=== PATIENT | female | born 1980 | race Caucasian/White ===

== ENCOUNTER 2019-07-18 05:52 | Day surgery (SDC) | payer BC, SELFPAY ==
[2019-07-17 10:35] VITALS: BMI 36.8
[2019-07-17 11:11] LABS: OR HCG Qualitative Urine Negative (Negative)
--- NOTE | 2019-07-17 11:26 | P.ANES_ITS ---
Pre-Anesthetic Assessment Pre-Anesthetic Assessment: Height/Weight: Height 1.63 m Weight 97.522 kg Proposed Procedure: Operation Date: 07/18/19 07:05 Proposed Procedures p Hysteroscopy w/ Ablation w/ Novasure(Not Applicable) - Galdino Mancuso MD Social: Social History: Alcohol and Tobacco Exam: Pre-Anes Outpt Exam: alert, oriented x 3, clear to auscultation bilaterally and regular rate & rhythm Airway: Submandibular: WNL Cervical ROM: WNL MP: 3 Dentition: Full History/ROS: No significant history except as noted Pulmonary: Pulmonary: None reported CV/HEM: CV/HEM: None reported : : None reported Hepatic: Hepatic: None reported GI: GI: GERD (not well controlled) Metabolic: Metabolic: None reported Musc/skel: Musc/skel: None reported Neuropsych: Neuropsych: None reported Anesthetic Plan: ASA status: II Anesthesia: Anesthesia Evaluation and General Risk of > 500 ml blood loss (7ml/kg in children): No PFSH Anesthesia PFSH: Medical History Depression (Acute) Gastroesophageal reflux (Acute) Migraine headache (Acute) On Topiramate for suppression. Surgical History S/P tubal ligation (Acute 06/20/08) Laparoscopic bilateral Falope ring sterilization. Performed by Dr. Houser at [facility] and [place], [place]. Status post cholecystectomy (Acute ~2010) Performed at [facility] in [place], [place] Family History Father Diabetes Sister No problems noted. Family/Other No problems noted. Social History Smoking and tobacco status: current every day smoker cigarettes Packs smoked per day: 1 [ Other cigarette details: Started age 18. Has decreased periodically, but never quit. ] Alcohol intake: current Alcohol intake frequency: holidays/special occasions only Substance/Drug Use: never Female Reproductive History: Spontaneous abortions: No Data Anesthesia Other Labs: Laboratory Results - last 48 hr 07/17/19 10:41 Urine HCG, Qual Negative Cardiac Studies: No Data to Display
[2019-07-17 11:30] LABS: Basophils # 0.1 10^3/uL (0.0-0.1); Basophils % 0.8 %; Eosinophils # 0.3 10^3/uL (0.0-0.8); Eosinophils % 4.2 %; Hematocrit 32.7 % (37.0-47.0); Lymphocytes # 1.7 10^3/uL (0.8-4.8); Lymphocytes % 26.7 %; Mean Corpuscular HGB Conc 30.6 g/dL (30.0-36.0); Mean Corpuscular Hemoglobin 24.4 pg (28.0-34.0); Mean Corpuscular Volume 79.8 fL (81-99); Mean Platelet Volume 11.4 fL (7.4-10.4); Monocytes # 0.6 10^3/uL (0.2-0.9); Monocytes % 9.3 %; Neutrophils # 3.7 10^3/uL (1.8-7.7); Neutrophils % 58.7 %; Nucleated Red Blood Cells % 0 %; Platelet Count 265 10^3/cmm (130-400); Red Cell Distribution Width 17.8 % (12.1-15.1); White Blood Count 6.3 10^3/uL (4.0-10.0)
[2019-07-18] VITALS (8 sets, daily range): BP systolic 103–137; BP diastolic 69–88; PULSE 84–120; RESP 16–20; TEMP 36.5–36.6; O2SAT 94–100
[2019-07-18] MEDS: sodium chloride 0.9% 1,000 ML 30 ML IV (06:15)
[2019-07-18] MEDS: ketorolac 30 mg/mL INJ IVP (06:15)
--- NOTE | 2019-07-18 07:03 | P.HPUD_ITS ---
H&P update H&P Update: DATE OF SURGERY/PROCEDURE: 07/18/19 DATE H&P PERFORMED: H&P UPDATE INFORMATION: H&P completed within last 30 days, No changes to prior documentation and H[place] is [place] [facility] [place] indicated PREOP DIAGNOSIS: Menorrhagia with irregular cycle, Iron deficiency anemia PLANNED PROCEDURE: Operation Date: 07/18/19 07:05 Proposed Procedures p Hysteroscopy w/ Ablation w/ Novasure(Not Applicable) - Galdino Mancuso MD Full H&P Medications/Allergies: Current Medications: Current Medications Generic Name Dose Route Start Last Admin Trade Name Freq PRN Reason Stop Dose Admin Sodium Chloride 1,000 mls @ 30 ml s/hr 07/18/19 05:45 07/18/19 06:15 Sodium Chloride 0.9% IV 07/19/19 05:44 30 mls/hr .Q24H RAYSA Administration Perinent History: Medical/Surgical History: Medical History (Updated 07/17/19 @ 01:04 by Galdino Mancuso MD) Depression (Acute) Gastroesophageal reflux (Acute) Migraine headache (Acute) On Topiramate for suppression. Family History: Family History (Updated 07/12/19 @ 16:25 by Idania Iyer LPN) Father Diabetes Sister No problems noted. Family/Other No problems noted. Social History: Social History Smoking and tobacco status: current every day smoker cigarettes Packs smoked per day: 1 [ Other cigarette details: Started age 18. Has decreased periodically, but never quit. ] Alcohol intake: current Alcohol intake frequency: holidays/special occasions only
--- NOTE | 2019-07-18 07:49 | P.OP_ITS ---
Operative Report Date of procedure: 07/18/19 Pre-op Diagnosis: Menorrhagia with irregular cycle Pre-op Diagnosis: Iron deficiency anemia due to chronic blood loss Post-op diagnosis: same Procedure Done: Hysteroscopy, Dilation and curettage, endometrial ablation with NovaSure Specimens removed/disposition: Endometrial curettings Surgeon: Galdino Mancuso Anesthesia: General Estimated blood loss (mL): 5 Complications: None Condition: stable Disposition: other (home) Brief History: Patient is a 38-year-old white female 3, para 3-0-0-2 with an LMP of 07/17/2018 who is status post tubal ligation. She had presented to the office due to heavy bleeding. She typically bleeds for 6 to 7 days with 3 to 4 days being heavy. During the heaviest times she changes a pad every couple of hours. She reports the passage of up to golf ball size clots with severe cramping when she passes those clots. Since December she has had spotting and cramping as well in between periods. She was treated with progesterone and attempt to control bleeding which was unsuccessful. She had an ultrasound performed which showed a normal endometrial lining with no evidence of fibroids or polyps seen. She had a in office hysteroscopy with no fibroids or polyps seen within the endometrial cavity. Endometrial biopsy was negative set for disordered proliferation. As part of her evaluation she also had a hemogram which showed her to be anemic with chronic iron deficiency. Further treatment options were discussed with her and she is presenting for endometrial ablation. Procedure: The patient was taken to the operating room where general anesthesia was obtained. She was prepped and draped in the usual sterile fashion in the dorsal supine position with legs in Joey style stirrups. Sequential compression boots had been placed prior to starting the case. Patient had voided just before coming to the operating room. Exam under anesthesia was performed and the patient was noted to have second- degree uterine prolapse with second-degree cystocele. A weighted speculum was placed in the vagina and the cervix was grasped with a single-tooth tenaculum. A paracervical block was performed with a total of 12 mL of 2% lidocaine with epinephrine used. The cervix was serially dilated until a operative hysteroscope could be passed. Crystalloid solution was used as a distention media. The endometrial cavity was inspected and appeared normal except for a fluffy lining. She is currently on her menses. Sharp curettage was performed until no further tissue was obtained. Using the NovaSure sound, endometrial cavity length was measured at 6.5 cm. The NovaSure device was inserted and device was deployed. The device was moved up and down and left and right until no further with adjustment occurred. Uterine width was measured at 4.4 cm. Settings were entered in the NovaSure machine and wattage was set at 157 [place]. Cavity integrity check was performed and integrity confirmed. Device was then activated. Total treatment time was 40 seconds. Device was removed. The tenaculum was removed and there was minimal bleeding from the tenaculum site. Patient tolerated the procedure well. Sponge and needle counts were correct. POSTOPERATIVE STATUS: The patient was transferred to the recovery room in satisfactory condition DISPOSITION: Discharge to home when criteria was met. FOLLOWUP APPOINTMENT: Followup appointment had been scheduled on 08/03/2019 in my office. MEDICATIONS: Prescription for: 1. Ibuprofen 800 mg, 1 tablet 3 times a day as needed for pain, #30, 0 refills 2. Tramadol 50 mg, 1 to 2 tablets every 6 hours as needed for pain, #10, 0 refills She is to resume her usual home medications.
--- NOTE | 2019-07-18 07:56 | SUR.PHASEI ---
PT AWAKE NOW ON RA GOOD RESP NOTED PT DENIES PAIN AND NAUSEA, VSS ABD IS SOFT, GRACE PAD D/I
--- NOTE | 2019-07-18 08:11 | SUR.PHASEI ---
0806 PT TO OPS AWAKE ALERT TALKATIVE VSS
[2019-07-18] MEDS: TRAMadol 50 mg Tablet PO (08:59)
== END 2019-07-18 09:00 | disposition home or self-care (01) ==
PROVIDERS: Family Provider Family Medicine; PCP Family Medicine; Visit Provider Obstetrics & Gynecology
PROC: 0U598ZZ Destruction of Uterus, Via Natural or Artificial Opening Endoscopic (ICD-10-PCS; CPT 58563; principal; 2019-07-18 07:00)
DX: N92.1 Excessive and frequent menstruation with irregular cycle (principal); Z83.3 Family history of diabetes mellitus; F17.210 Nicotine dependence, cigarettes, uncomplicated
CPT/HCPCS: 58563; 12345; 36415; 84703; 85025; 88305; J1100; J1885; J2001; J2405; J2704; J3010; J7030

== ENCOUNTER 2019-12-12 10:59 | Observation (INO) | payer BC, SELFPAY ==
[2019-12-08 11:56] VITALS: BMI 37.0
[2019-12-08 12:42] LABS: Basophils % 0.4 %; Eosinophils # 0.1 10^3/uL (0.0-0.8); Eosinophils % 1.8 %; Lymphocytes # 2.2 10^3/uL (0.8-4.8); Lymphocytes % 28.5 %; Mean Corpuscular HGB Conc 32.4 g/dL (30.0-36.0); Mean Corpuscular Hemoglobin 27.3 pg (28.0-34.0); Mean Corpuscular Volume 84.1 fL (81-99); Mean Platelet Volume 11.4 fL (7.4-10.4); Monocytes # 0.5 10^3/uL (0.2-0.9); Monocytes % 6.9 %; Neutrophils # 4.8 10^3/uL (1.8-7.7); Nucleated Red Blood Cells % 0 %; OR HCG Qualitative Urine Negative (Negative); Platelet Count 250 10^3/cmm (130-400); Red Cell Distribution Width 16.6 % (12.1-15.1); White Blood Count 7.7 10^3/uL (4.0-10.0)
--- NOTE | 2019-12-08 15:41 | ANES.PREANE2 ---
Pre-Anesthetic Assessment Pre-Anesthetic Assessment: Height/Weight: Height 1.63 m Weight 97.976 kg Preop Diagnosis: Menorrhagia, Uterovaginal prolapse, Iron deficiency anemia Proposed Procedure: Operation Date: 12/12/19 09:00 Proposed Procedures p Total vaginal hysterectomy with possible bilateral salpingo-[id number]/N81.2/N92.1/D50.0(Not Applicable) - Galdino Mancuso MD s Anterior Repair Anterior Colporrhaphy(Not Applicable) - Galdino Mancuso MD Was Beta Jared taken within 24 hours: N/A Social: Social History: Alcohol and Tobacco Exam: Pre-Anes Outpt Exam: alert and oriented x 3 Airway: Submandibular: WNL Cervical ROM: WNL MP: 2 Dentition: False History/ROS: No significant history except as noted Pulmonary: Pulmonary: None reported CV/HEM: CV/HEM: None reported : : None reported Hepatic: Hepatic: None reported GI: GI: GERD Musc/skel: Musc/skel: None reported Neuropsych: Comments: Migraine Headache Anesthetic Plan: ASA status: 2 Anesthesia: General PFSH Anesthesia PFSH: Medical History Depression Gastroesophageal reflux Migraine headache On Topiramate for suppression. Surgical History History of endometrial ablation (07/18/19) Hysteroscopy with D&C and NovaSure ablation. Dx: Menorrhagia, anemia. Performed by [place]. Mancuso [place] [facility] [place]. S/P tubal ligation (06/20/08) Laparoscopic bilateral Falope ring sterilization. Performed by Dr. Houser at [facility] and [place], [place]. Status post cholecystectomy (~2010) Performed at [facility] in [place], [place] Family History Father Diabetes Sister No problems noted. Family/Other No problems noted. Social History Smoking and tobacco status: current every day smoker cigarettes Packs smoked per day: 1 [ Other cigarette details: Started age 18. Has decreased periodically, but never quit. ] Alcohol intake: current Alcohol intake frequency: holidays/special occasions only Female Reproductive History: Spontaneous abortions: No Data Anesthesia CBC & Chem 7: 12/08/19 12:06 Other Labs: Laboratory Results - last 48 hr 12/08/19 12/08/19 12:06 12:06 WBC 7.7 RBC 4.40 Hgb 12.0 Hct 37.0 MCV 84.1 MCH 27.3 L MCHC 32.4 RDW 16.6 H Plt Count 250 MPV 11.4 H Neut % (Auto) 62.0 Lymph % (Auto) 28.5 [place] % (Auto) 6.9 Eos % (Auto) 1.8 Baso % (Auto) 0.4 Neut # (Auto) 4.8 Lymph # (Auto) 2.2 [place] # (Auto) 0.5 Eos # (Auto) 0.1 Baso # (Auto) 0.0 Nucleated RBC % (auto) 0 Nucleated RBCs # 0.0 Urine HCG, Qual Negative Cardiac Studies: No Data to Display
[2019-12-12] VITALS (20 sets, daily range): BP systolic 133–158; BP diastolic 84–111; PULSE 66–102; RESP 16–22; TEMP 36.2–37; O2SAT 92–100
[2019-12-12 08:00] LABS: OR HCG Qualitative Urine Negative (Negative)
[2019-12-12 08:02] LABS: Add Urine Microscopic? YES; Bilirubin Urine Neg (NEGATIVE); Blood Urine 2+ (Negative); Glucose Urine UA Norm (Normal); Ketones Urine Negative (Negative); Leukocyte Esterase Urine Negative (Negative); Nitrate Urine Negative (Negative); Protein Urine Neg (Negative); Urine Appearance Clear (CLEAR); Urine Color Yellow (Yellow); Urobilinogen Urine Norm (Negative); pH Urine 6.5 (5-7)
[2019-12-12 08:18] LABS: Add Urine Culture? No; Bacteria Urine 1+; Mucus Urine 1+; RBC Urine 0-4 /hpf (0-2); Squamous Epithelial Cell Urine 25-40 (0-5)
[2019-12-12] MEDS: phenazopyridine 100 mg Tablet 200 MG PO ×3 (08:24→20:40)
[2019-12-12] MEDS: sodium chloride 0.9% 1,000 ML 30 ML IV (08:24)
[2019-12-12] MEDS: ketorolac 30 mg/mL INJ IVP ×2 (08:25→16:05)
--- NOTE | 2019-12-12 08:25 | P.ANESUD_ITS ---
Pre-Anesthetic Update Pre-Anesthetic Assessment: Date of Surgery/Procedure: 12/12/19 Preop Keshia gnosis: Menorrhagia, Uterovaginal prolapse, Iron deficiency anemia Proposed Procedure: Operation Date: 12/12/19 09:00 Proposed Procedures p Total vaginal hysterectomy with possible bilateral salpingo- [id number]/N81.2/N92.1/D50.0(Not Applicable) - Galdino Mancuso MD s Anterior Repair Anterior Colporrhaphy(Not Applicable) - Galdino Mancuso MD Any changes to Pre-Anesthetic Assessment?: No Last Intake: Intake Last Liquid Date 12/11/19 Last Liquid Time 23:00 Last Solid Date 12/11/19 Last Solid Time 19:00 Labs Last 48hrs: Laboratory Results - last 48 hr 12/12/19 12/12/19 07:51 07:59 Urine Color Yellow Urine Appearance Clear Urine pH 6.5 Ur Specific Gravit y 1.010 Urine Protein Neg Urine Glucose (UA) Norm Urine Ketones Negative Urine Blood 2+ H Urine Nitrate Negative Urine Bilirubin Neg Urine Urobilinogen Norm Ur Leukocyte Aracely ase Negative Urine RBC 0-4 H Urine WBC None Ur Squamous Epith Cells 25-40 H Urine Bacteria 1+ H Urine Mucus 1+ Urine HCG, Qual Negative Vitals: Temperature 97.1 F L 12/12/19 07:52 Temperature Source Temporal Artery S can 12/12/19 07:52 Pulse Rate 80 12/12/19 07:52 Respiratory Rate 18 12/12/19 07:52 Blood Pressure 136/93 12/12/19 07:52 Blood Pressure Breana n 107 12/12/19 07:52 Pulse Oximetry 98 12/12/19 07:52 Oxygen Delivery Me thod 12/12/19 07:52 Exam: Pre-Anes Outpt Exam: alert, oriented x 3, clear to auscultation bilaterally and regular rate & rhythm Cardiac Studies: No Data to Display
--- NOTE | 2019-12-12 08:44 | P.HPUD_ITS ---
Surgery/Procedure H&P Update DATE OF PROCEDURE: December 12, 2019 DATE H&P PERFORMED: 12/08/19 H&P UPDATE INFORMATION: I have reviewed H&P completed within last 30 days, I have examined patient prior to procedure, No changes to prior documentation and [place] [facility] [place] indicated PREOP DIAGNOSIS: Menorrhagia, Uterovaginal prolapse, Iron deficiency anemia PLANNED PROCEDURE: Operation Date: 12/12/19 09:00 Proposed Procedures p Total vaginal hysterectomy with possible bilateral salpingo- [id number]/N81.2/N92.1/D50.0(Not Applicable) - Galdino Mancuso MD s Anterior Repair Anterior Colporrhaphy(Not Applicable) - Galdino Mancuso MD
[2019-12-12] MEDS: vasopressin 20 unit/mL INJ INJECTION (10:08)
--- NOTE | 2019-12-12 11:02 | P.OP_ITS ---
Operative Report Date of procedure: December 12, 2019 Pre-op Diagnosis: Menorrhagia, Uterovaginal prolapse (incomplete) Post-op Diagnosis: Menorrhagia, Uterovaginal prolapse (incomplete) Procedure Done: Total vaginal hysterectomy, Anterior vaginal repair with Raquel plication Specimens removed/disposition: Uterus and cervix Surgeon: Galdino Mancuso Publishing Agent: Della Anesthesia: General Estimated blood loss (mL): 100 IV fluids (mL): 1,000 Complications: None Findings: Normal-appearing uterus, tubes, and ovaries. Second-degree uterine prolapse. Second-degree cystocele with hypermobile urethra. Condition: stable Brief History: Patient is a 39-year-old white female 3, para 3-0-0-2 who is status post tubal ligation. She initially presented to the office in 03/2019 with complaints of heavy, irregular bleeding with the passage of up to golf ball sized clots. She had a negative evaluation at that time for other causes of the bleeding. She had an endometrial ablation performed in 06/2019. Following the ablation, she noticed a decreased bleeding but continued to bleed irregularly and is now bleeding almost daily. Even though the bleeding has decreased she is still having to change pads every 2-3 hours during the heavier times. As a re sult, she wanted proceed to the next step in treatment of her bleeding. In addition she had been found to have a second-degree uterine prolapse and second- degree cystocele at the time of the ablation. Questions were answered. She is presenting for surgical treatment of her bleeding and prolapse. Procedure: Patient was taken to the operating room where general anesthesia was obtained. She was prepped and draped in usual sterile fashion in the dorsal supine position with legs in Joey style stirrups. Sequential compression boots were placed prior to starting the case. Waldrop catheter was inserted and exam under anesthesia was performed. She was found to have second-degree uterine prolapse with second-degree cystocele. Weighted speculum was placed in the vagina and the cervix was grasped with a single-tooth tenaculum. The cervix was circumferentially injected with dilute Pitressin solution. A circumferential incision was made with a knife and the bladder was bluntly dissected off of the lower uterine segment. Posterior cul-de-sac was sharply entered and the peritoneum tagged to the vaginal mucosa in the midline. Long weighted retractor was placed in the posterior cul-de-sac. The uterosacral ligaments were clamped, cut, and suture ligated with 0 Vicryl suture bilaterally. The cardinal ligament complexes were clamped, cut, and suture ligated with 0 Vicryl suture bilaterally. The bladder was sharply dissected away from the uterus and the anterior cul-de-sac entered. A long right angle retractor was used to elevate the bladder away from the uterus. The remaining portions of the broad ligament were serially clamped, cut, and suture ligated with 0 Vicryl suture bilaterally until the uterus was completely excised. The pedicles were inspected and noted to be hemostatic. Ovaries were inspected and appeared normal bilaterally. The posterior edge of the vaginal cuff was oversewn with 0 Vicryl suture in a running locking fashion incorporating the peritoneum to the edge of the cuff. This started from the 3:00 position and extended around to the 9:00 position posteriorly. The anterior vaginal wall was injected with dilute Pitressin solution. Starting at the vaginal vault, the anterior vaginal wall was undermined and opened in the midline. This was carried up to the mid urethral level. Using a combination of sharp and blunt dissection, the skin was dissected from the vesicovaginal fascia over the entire length of the anterior wall up to the mid urethral region and to the lateral aspects anteriorly. At this point she was noted to have a significant drop in her urethra consistent with hypermobility of the urethra. As a result decision was made to do a Raquel plication in addition to the anterior repair. Using a #1 Vicryl suture, stitch was placed into the periurethral tissue behind the pubic symphysis starting on the left side. The periurethral tissue was picked up on the right side followed by the tissue on the left side. The stitch was then brought out laterally on the right to peanut picker the periurethral tissue behind the pubic symphysis. Stitch was then held. Using 2-0 Vicryl suture, stitches were placed laterally into the vesicovaginal fascia at the corners of the dissection and brought across to the contralateral side picking up the tissue laterally at approximately the same level. Multiple stitches were placed into the anterior wall. Once stitches were all placed, these were tied starting at the vaginal cuff level. This reduced the cystocele adequately. At the end of the Raquel plication stitch was then tied which elevated the urethra. Excess vaginal mucosa was then excised. The vaginal wall was closed using 3-0 Vicryl suture in a running locking fashion. The vaginal cuff was closed in a vertical fashion using 0 Vicryl suture in an interrupted [id number] fashion. The cardinal ligaments and uterosacral ligaments were tied in the midline using previously held sutures. The cuff was noted to be hemostatic. Patient tolerated the procedure well. Sponge, needle, and instrument counts were correct. DRAINS: Waldrop catheter POSTOPERATIVE STATUS: The patient was transferred to the recovery room in satisfactory condition
[2019-12-12] MEDS: fentaNYL 50 mcg/mL INJ 2mL 100 MCG IVP (11:17)
[2019-12-12] MEDS: morphine 4 mg/mL SDV 1 mL 2 MG IVP (11:28)
[2019-12-12] MEDS: dextrose 5%-lactated ringers 1,000 ML 125 ML IV ×2 (12:13→17:46)
[2019-12-12] MEDS: HYDROcodone-acetaminophen 5-325 mg Tablet PO ×2 (12:15→17:47)
[2019-12-12] MEDS: pantoprazole DR 40 mg Tablet PO (12:15)
[2019-12-12] MEDS: citalopram 20 mg Tablet 10 MG PO (12:16)
[2019-12-12] MEDS: morphine 4 mg/mL SDV 1 mL IVP ×2 (12:16→13:09)
[2019-12-12] MEDS: topiramate 25 mg Tablet PO (17:47)
[2019-12-12] MEDS: docusate sodium 100 mg Capsule PO (17:47)
[2019-12-13] MEDS: HYDROcodone-acetaminophen 5-325 mg Tablet PO ×3 (00:39→14:52)
[2019-12-13 01:34] VITALS: RESP 18
[2019-12-13] MEDS: morphine 4 mg/mL SDV 1 mL IVP (01:34)
[2019-12-13] MEDS: dextrose 5%-lactated ringers 1,000 ML 125 ML IV (01:35)
[2019-12-13 05:06] LABS: Hematocrit 32.1 % (37.0-47.0); Hemoglobin 10.3 g/dL (11.5-15.3); Mean Corpuscular HGB Conc 32.1 g/dL (30.0-36.0); Mean Corpuscular Hemoglobin 26.9 pg (28.0-34.0); Mean Corpuscular Volume 83.8 fL (81-99); Mean Platelet Volume 11.5 fL (7.4-10.4); Platelet Count 258 10^3/cmm (130-400); Red Blood Count 3.83 10^6/uL (4.1-5.3); Red Cell Distribution Width 16.5 % (12.1-15.1); White Blood Count 12.4 10^3/uL (4.0-10.0)
[2019-12-13 07:33] VITALS: BP 146/86; PULSE 82; RESP 16; TEMP 37.1; O2SAT 97
--- NOTE | 2019-12-13 07:50 | PM.PN ---
Subjective Subjective: Interval history: Patient reports doing well. She denies any complaints. Denies shortness of breath or chest pains. Denies lightheadedness or dizziness with ambulation. Reports pain is been well controlled. Reports tolerating liquids without nausea or vomiting. Reports passing flatus. Vitals/I&O/Wt Last Vital Signs Temp 98.7 F 12/13/19 07:33 Pulse 82 12/13/19 07:33 Resp 16 12/13/19 07:33 BP 146/86 12/13/19 07:33 Pulse Ox 97 12/13/19 07:33 12/12/19 12/13/19 12/13/19 22:59 06:59 14:59 Intake Total 753.75 / 803.75 977.083 / 1780.833 175 / 175 Output Total 2050 / 2550 600 / 3150 Balance -1296.25 / -1746.25 377.083 / -1369.167 175 / 175 Physical Exam Const: COMMON NORMALS: no acute distress, average body habitus, alert and well nourished GENERAL APPEARANCE: well developed ORIENTATION/CONSCIOUSNESS: Yes oriented to person, Yes oriented to place and Yes oriented to time Resp: COMMON NORMALS: normal respiratory effort and clear to auscultation bilaterally AUSCULTATION: clear to auscultation bilaterally Cardio: COMMON NORMALS: regular rate, regular rhythm, No gallops present (Cardio), No murmurs present (Cardio) and No rub (Cardio) RATE: regular rate RHYTHM: regular rhythm GI: COMMON NORMALS: Soft to palpation, No hepatosplenomegaly present and no masses AUSCULTATION: Yes normoactive bowel sounds PALPATION: Yes Soft to palpation, Yes Tenderness to palpation present (GI) (Suprapubically), Yes No hepatosplenomegaly present and No Hernia present : EXTERNAL FEMALE EXAM: No Hernia present Extremity: COMMON NORMALS: no calf tenderness Neuro: SENSORIUM/ORIENTATION: Yes alert, Yes oriented to person, Yes oriented to place and Yes oriented to time Psych: COMMON NORMALS: normal affect MOOD & AFFECT: Yes euthymic mood Urinary Catheter Management^: Waldrop: Cath Placed During This Visit: yes Urinary Catheter Date of Insertion: 12/12/19 Urinary Catheter Time of Insertion: 09:40 Data : 12/13/19 04:47 A&P Assessment and plan (1) Incomplete uterovaginal prolapse: Postop day 1, status post TVH with anterior repair. Patient is doing well this morning. Pain well controlled on oral medications. Encourage ambulation this morning. May shower. Waldrop catheter discontinued and start voiding trials. Vaginal packing also removed this morning. Plan to discharge to home after noon today. Status: Acute (2) Menorrhagia with irregular cycle: Status: Acute Attestations Medical Necessity Statement*: Plan to discharge to home after noon today. 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
[2019-12-13] MEDS: phenazopyridine 100 mg Tablet 200 MG PO ×2 (08:04→14:52)
[2019-12-13] MEDS: docusate sodium 100 mg Capsule PO (08:05)
[2019-12-13] MEDS: pantoprazole DR 40 mg Tablet PO (08:05)
[2019-12-13] MEDS: topiramate 25 mg Tablet PO (08:05)
[2019-12-13] MEDS: citalopram 20 mg Tablet 10 MG PO (08:05)
--- NOTE | 2019-12-13 09:29 | PC.CHAP ---
Pastoral Care Encounter/Spiritual Assessment Type of Contact [] Declined wedding decorator visit [] Patient/Family/Request visit [] Outpatient visit [] Follow-up visit [] Physician referral [] Code/Alert [x] Routine visit [] Staff referral [] Actively dying [] Patient sleeping [] Family support [] [] Out of room [] Palliative care [] [] Receiving care in room [] Pre-surgical visit [] Trauma [] Long length of stay [] ICU visit [] Other: Relational/Emotional Strength [] Patient feels connected with others/family/visitors/staff [] Distress [] Loneliness/isolation [] Abandonment Spirituality of Patient [] Person of Armida [] Attends [employer] of their [place] [] Believes in Prayer [] Reads Bible or Yazdanism materials [] There are Spiritual issues to be addressed Scrap Hoist Operator Interventions [x] Prayer [] Active listening [] Non-anxious presence [] Spiritual/emotional support [] Crisis/trauma care [] Spiritual counseling [] Bereavement support [] Provided bereavement packet [] Provided Bible/devotional materials [] Provided toy/stuffed animal, coloring book to patient or family member [] Provided Communion [] Anointing/[place] [] Salvation [x] Completed spiritual assessment [] Other: Impact on Illness or Injury [] Angry [] Fearful [] Anxious [] Often cries [] Exhaustion [] Unable to work [] Unable to attend caodaism [] Unable to walk/stand [] Unable to read [] Unable to drive [] Unable to eat/drink [] Unable to sleep [] Unable to be with family [] Patient intubated [] Other: Summary Patient pacing in room, trying to relieve the pain. Time spent with patient 10 min
--- NOTE | 2019-12-13 10:08 | PC.RESP ---
Smoking Cessation information and a schedule of classes to patient.
[2019-12-13 11:23] VITALS: BP 135/78; PULSE 79; RESP 16; TEMP 36.7; O2SAT 97
[2019-12-13] MEDS: acetaminophen 325 mg Tablet 650 MG PO (13:21)
--- NOTE | 2019-12-13 14:16 | P.DS_ITS ---
Discharge Providers Date of Admission: 12/12/19 10:59 Date of Discharge: December 13, 2019 Attending Provider at Admission: Galdino Mancuso MD Attending Provider at Discharge: Galdino Mancuso MD Primary Care Provider: Lemuel Jose MD Diagnoses at Discharge Discharge Diagnosis (1) Incomplete uterovaginal prolapse: Status: Acute (2) Menorrhagia with irregular cycle: Status: Acute (3) Postoperative urinary retention: Status: Acute Reason for Visit Reason for Visit: DX UNKNOWN Hospital Course Hospital Course: Patient is a 39-year-old white female 3, para 3-0-0-2 who is status post tubal ligation. She had presented to the office and 03/2019 complaining of heavy, irregular bleeding and passage of up to golf ball sized clots. Evaluation at that time was negative for any cause for the bleeding. She was treated with an endometrial ablation in 06/2019, but this did not control her bleeding overall. She did see a decrease in the heaviness, but was still bleeding almost daily. She was having to change a pad every 2-3 hours during the heaviest times. As a result of the continued heavy bleeding, she wished to proceed to the next step which was hysterectomy. In addition she had been noted to have a second-degree uterine prolapse and second-degree cystocele at the time of her endometrial ablation. Because of this and the bleeding, she is prese nting for hysterectomy and an anterior vaginal repair. She was admitted to the hospital on 12/12/2019 and had a Total vaginal hysterectomy, Anterior vaginal repair with Raquel plication. She tolerated the surgery well. She is required parenteral pain medication following surgery. She was monitored through the day. POST OPERATIVE DAY 1 By that morning, she was reporting doing well. She was tolerating liquids without nausea or vomiting. She was ambulating without lightheadedness or dizziness. Her pain was well controlled on oral medications. She denied any shortness of breath or chest pains. She was afebrile with stable vital signs. Waldrop catheter and vaginal packing was removed that morning. Voiding trials were started. She had large post void residuals with low voided volumes. As a result self-catheterization was taught and patient attempted to catheterize herself. She was unsuccessful with this. As result Waldrop catheter was inserted. She was otherwise doing well. Physical exam: See below Plan She was discharged to home in the afternoon of postoperative day 1. She was sent home with catheter present and was to be seen in the office on Sunday 12/17 for possible catheter removal. Discharge instructions were discussed with her. Physical Exam Const: COMMON NORMALS: no acute distress, average body habitus, alert and well nourished GENERAL APPEARANCE: well developed ORIENTATION/CONSCIOUSNESS: Yes oriented to person, Yes oriented to place and Yes oriented to time Resp: COMMON NORMALS: normal respiratory effort and clear to auscultation bilaterally AUSCULTATION: clear to auscultation bilaterally Cardio: COMMON NORMALS: regular rate, regular rhythm, No gallops present (Cardio), No murmurs present (Cardio) and No rub (Cardio) RATE: regular rate RHYTHM: regular rhythm GI: COMMON NORMALS: Soft to palpation, No hepatosplenomegaly present and no masses AUSCULTATION: Yes normoactive bowel sounds PALPATION: Yes Soft to palpation, Yes Tenderness to palpation present (GI) (mild suprapubic tenderness), Yes No hepatosplenomegaly present and No Hernia present : EXTERNAL FEMALE EXAM: No Hernia present Neuro: SENSORIUM/ORIENTATION: Yes alert, Yes oriented to person, Yes oriented to place and Yes oriented to time Psych: COMMON NORMALS: normal affect MOOD & AFFECT: Yes euthymic mood Urinary Catheter Management^: Waldrop: Cath Placed During This Visit: yes, but has since been removed by the nurse Reason for Continuing Indwelling Catheter: Decision to DC Catheter Urinary Catheter Date of Insertion: 12/12/19 Urinary Catheter Time of Insertion: 09:40 Date Urinary Catheter Removed: 12/13/19 Time Urinary Catheter Discontinued: 08:05 Discharge Data Data Completed and Pending: Pending at discharge Category Date Time Status Urine Culture Rou kat [facility] 12/12/19 07:51 Results Pathology: Surgic al [PTH] Routine Pth 12/12/19 10:46 Received Labs from last 24 hours 12/13/19 04:47 WBC 12.4 H RBC 3.83 L Hgb 10.3 L Hct 32.1 L MCV 83.8 MCH 26.9 L MCHC 32.1 RDW 16.5 H Plt Count 258 MPV 11.5 H Vitals: Last Vital Signs Temp 98.1 F 12/13/19 11:23 Pulse 79 12/13/19 11:23 Resp 16 12/13/19 11:23 BP 135/78 12/13/19 11:23 Pulse Ox 97 12/13/19 11:23 Discharge Plan Discharge Patient Disposition: Home, Self-Care Condition: Stable Prescriptions: New ibuprofen 800 mg Tablet 800 mg PO TID PRN (Reason: pain) Qty: 40 RF: 0 hydrocodone-acetaminophen 5-325 mg Tablet 1 - 2 tab PO Q6H PRN (Reason: Moderate To Severe Pain) Qty: 30 RF: 0 Continued citalopram 10 mg tablet 10 mg PO QDAY RF: 0 omeprazole 40 mg capsule,delayed release(DR/EC) 40 mg PO QDAY RF: 0 topiramate 25 mg tablet 25 mg PO BID RF: 0 No Action metronidazole [Flagyl] 500 mg tablet 500 mg PO BID Qty: 14 RF: 0 Discharge Orders: Discharge Order (Routine); Ordered 12/13/19 Ordered By: Galdino Mancuso Referrals: Galdino Mancuso MD [Physician] - 12/18/19 9:00 am (APPOINTMENT ON WednesdayDECEMBER 17 AT 9:00 THEN Post operative appointment ON DECEMBER 27 AT 1:45 ) Discharge Diet: Regular Discharge Activity: Limit activity as instructed Patient Instructions: Hydrocodone/Acetaminophen (By mouth), Ibuprofen (By mouth), OB Abdominal Surgery - [facility] Activity Restrictions/Additional Instructions: APPOINTMENT ON WednesdayDECEMBER 17 AT 9:00 THEN POST OP APPOINTMENT ON DECEMBER 27 AT 1:45 Discharge Date/Time: 12/13/19 16:12 Discharge Attestations Time Spent in Discharge Care*: less than 30 min Quality Metrics Clinical Quality Measures During this hospital stay, did patient experience: None Coding Level of Care Code Acute Experimental Display Builder for Chg Fwd Exam Detailed Diagnoses Incomplete uterovaginal prolapse N81.2 Menorrhagia with irregular cycle N92.1 Postoperative urinary retention N99.89; R33.8
[2019-12-13 16:11] VITALS: BP 135/78; PULSE 79; RESP 16; TEMP 36.7; O2SAT 97
== END 2019-12-13 16:12 | disposition home or self-care (01) ==
LOC: MEDSURG 11:00
PROVIDERS: Anesthesiology; Admitting Provider Obstetrics & Gynecology; PCP Family Medicine; Visit Provider Obstetrics & Gynecology
PROC: (CPT 57220; principal; 2019-12-12 09:00)
PROC: 0JQC0ZZ Repair Pelvic Region Subcutaneous Tissue and Fascia, Open Approach (ICD-10-PCS; CPT 57240; 2019-12-12 09:00)
DX: N81.2 Incomplete uterovaginal prolapse (principal); N92.1 Excessive and frequent menstruation with irregular cycle; D50.0 Iron deficiency anemia secondary to blood loss (chronic); N99.89 Other postprocedural complications and disorders of genitourinary system; R33.8 Other retention of urine
CPT/HCPCS: 57220; 57240; 58260; 12345; 36415; 51702; 51798; 81001; 81025; 84703; 85025; 85027; 86850; 86900; 87086; 88307; 96375; G0378; J0690; J1100; J1885; J2001; J2270; J2405; J2704; J2710; J3010; J3490; J7030

== ENCOUNTER → 2019-12-18 09:00 | Outpatient (BNVA) | payer BC, SELFPAY | PROVIDERS: PCP Family Medicine; Visit Provider Obstetrics & Gynecology | DX: N76.0 Acute vaginitis (principal); B96.89 Other specified bacterial agents as the cause of diseases classified elsewhere; Z90.710 Acquired absence of both cervix and uterus | CPT/HCPCS: 80053; 87077; 87086; 87186 ==

== ENCOUNTER → 2020-02-23 14:10 | Outpatient (BNVA) | payer BC, SELFPAY | PROVIDERS: PCP Family Medicine; Visit Provider Obstetrics & Gynecology | DX: L73.2 Hidradenitis suppurativa (principal) | CPT/HCPCS: 80048 ==

== ENCOUNTER → 2021-03-14 13:41 | Outpatient (BNVA) | payer OTHER, SELFPAY | PROVIDERS: PCP Family Medicine; Visit Provider Nurse Practitioner Family | DX: Z20.822 Contact with and (suspected) exposure to COVID-19 (principal) | CPT/HCPCS: 87635 ==

== ENCOUNTER → 2022-03-02 11:16 | Outpatient (BNVA) | payer BC, SELFPAY | PROVIDERS: PCP Family Medicine; Visit Provider Registered Nurse Neonatal Intensive Care | DX: R05.9 Cough, unspecified (principal); J30.9 Allergic rhinitis, unspecified | CPT/HCPCS: 87880 ==

== ENCOUNTER 2022-12-28 11:20 | Emergency (ER) | payer OTHER, SELFPAY ==
--- NOTE | 2022-12-28 11:33 | W.ED.ABDPA2 ---
HPI - Abdominal Pain General: Stated Complaint: abd pain, N/V Time Seen by Provider: 12/28/22 11:22 PFS ED PFSH: Medical History (Updated 01/26/20 @ 10:53 by Galdino Mancuso MD) Depression Gastroesophageal reflux Migraine headache On Topiramate for suppression. Surgical History History of endometrial ablation (07/18/19) Hysteroscopy with D&C and NovaSure ablation. Dx: Menorrhagia, anemia. Performed by Dr. Mancuso at [facility]. History of vaginal hysterectomy (12/12/19) TVH with anterior vaginal repair with Raquel plication. Performed by Dr. Galdino Mancuso at [facility] in [place], [place] S/P tubal ligation (06/20/08) Laparoscopic bilateral Falope ring sterilization. Performed by Dr. Houser at [facility] and [place], [place]. Status post cholecystectomy (~2010) Performed at [facility] in [place], [place] Family History Father Diabetes Sister No problems noted. Family/Other No problems noted. Social History Smoking and tobacco status: current every day smoker cigarettes Packs smoked per day: 1 [ Other cigarette details: Started age 18. Has decreased periodically, but never quit.] Alcohol intake: current Alcohol intake frequency: holidays/special occasions only Substance/Drug Use: never Female Reproductive History: Spontaneous abortions: No Discharge Plan Discharge Condition: Stable Prescriptions: No Action omeprazole 40 mg capsule,delayed release(DR/EC) 40 mg PO QDAY fluticasone propionate [Flonase Allergy Relief] 50 mcg/actuation spray,suspension 1 spray intranasal DAILY Qty: 16 0RF Rx Instructions: administer into each nostril levocetirizine [Xyzal] 5 mg tablet 5 mg PO DAILY Qty: 30 0RF famotidine 40 mg tablet 40 mg PO DAILY rizatriptan 10 mg tablet 10 mg PO Q2H PRN Rx Instructions: do not exceed 3 doses per 24 hrs lisinopril 10 mg tablet 10 mg PO DAILY ondansetron 4 mg tablet,disintegrating 4 mg PO Q6H Referrals: Aggie Stevens APN [Primary Care Provider] - Coding Level of Care Code ED Foreign Exchange Trader for Ned Mccrary
[2022-12-28 11:38] VITALS: BP 140/94; PULSE 97; RESP 20; TEMP 36.5; O2SAT 98
--- NOTE | 2022-12-28 11:42 | CT_ITS ---
WS: [id number] CT ABDOMEN PELVIS TECHNIQUE: Noncontrast CT of the abdomen and pelvis with coronal and sagittal reformatted images. CLINICAL INFORMATION: Abdominal pain COMPARISON: CT 4 18,019 DLP: 1047.[address] scans at [facility] use at least one of these dose optimization techniques: automated e xposure control; mA and/or kV adjustment per patient size (includes targeted exams where dose is matc hed to clinical indication); or iterative reconstruction. FINDINGS: Prior cholecystectomy. Lung bases are well aerated. Normal noncontrast liver. Normal noncontrast sple en. Normal GE junction. Noncontrast pancreas appears normal. Prior cholecystectomy. Pneumobilia likel y incidental postcholecystectomy. Adrenal glands are normal. No hydronephrosis in either kidney. No obstructing renal or ureteral calc gabriella. A few pelvic phleboliths. Normal caliber abdominal aorta. Tiny fat-containing umbilical hernia. Normal appendix in the RIGHT lower quadrant. No evidence of acute appendicitis. No free fluid in the abdomen or pelvis. Normal sigmoid colon. No evidence of small or large bowel obstruction. CT/CT abdomen pelvis wo con [id number] IMPRESSION: 1. No obstructing renal or ureteral calculi. No hydronephrosis. 2. Normal appendix in the RIGHT lower quadrant. No evidence of acute appendici tis. 3. No free fluid in the abdomen or pelvis. 4. Tiny incidental fat-containing umbilical hernia. 5. Prior cholecystectomy with a small amount of pneumobilia likely incidental.
[2022-12-28 11:52] LABS: Add Urine Microscopic? YES; Bilirubin Urine Neg (Negative); Blood Urine Neg (Negative); Glucose Urine UA Norm (Normal); Ketones Urine Negative (Negative); Leukocyte Esterase Urine Trace (Negative); Nitrate Urine Negative (Negative); Protein Urine Neg (Negative); Specific Gravity, Urine 1.005 (1.005-1.030); Urine Appearance Clear (CLEAR); Urine Color Dark Yellow (Yellow); Urobilinogen Urine Norm (Negative); pH Urine 7 (5-7)
[2022-12-28 11:53] LABS: Add Urine Culture? No; Bacteria Urine 2+ /hpf; Mucus Urine 2+ /hpf; WBC Urine 0-4 /hpf (0-5)
[2022-12-28] MEDS: ondansetron 2 mg/ML SDV 2 mL 4 MG IVP (11:58)
[2022-12-28 12:01] VITALS: RESP 18; O2SAT 97
[2022-12-28] MEDS: morphine 4 mg/mL SDV 1 mL IVP (12:01)
[2022-12-28 12:08] LABS: Basophils % 0.5 %; Eosinophils # 0.2 10^3/uL (0.0-0.8); Eosinophils % 2.6 %; Hematocrit 41.3 % (37.0-47.0); Lymphocytes # 2.5 10^3/uL (0.8-4.8); Lymphocytes % 31.3 %; Mean Corpuscular HGB Conc 33.9 g/dL (30.0-36.0); Mean Corpuscular Hemoglobin 30.2 pg (28.0-34.0); Mean Platelet Volume 10.8 fL (7.4-10.4); Monocytes # 0.6 10^3/uL (0.2-0.9); Monocytes % 7.3 %; Neutrophils % 57.9 %; Nucleated Red Blood Cells % 0 %; Platelet Count 213 10^3/cmm (130-400); Red Blood Count 4.64 10^6/uL (4.1-5.3); Red Cell Distribution Width 12.6 % (12.1-15.1); White Blood Count 8.1 10^3/uL (4.0-10.0)
[2022-12-28 12:25] LABS: HCG, Serum Qual Negative (Negative)
[2022-12-28 12:26] LABS: Alanine Aminotransferase 23 U/L (0-33); Albumin Level 4.1 g/dL (3.5-5.2); Alkaline Phosphatase 74 U/L (35-105); Anion Gap 13.8 (5-19); Aspartate Amino Transferase 14 U/L (0-32); Blood Urea Nitrogen 9 mg/dL (6-20); Calcium 8.8 mg/dL (8.5-10.5); Carbon Dioxide 25 mmol/L (22-29); Chloride 100 mmol/L (98-107); Globulin 2.9 g/dL (1.3-4.6); Glomerular Filtration Rate 92.2 mL/min (90-130); Glucose 102 mg/dL (65-115); Lipase 23 U/L (13-60); Osmolality Calculated 279 mOsm/kg (285-295); Potassium 3.8 mmol/L (3.5-5.1); Sodium 135 mmol/L (136-145); Total Bilirubin 0.3 mg/dL (0.15-1.2)
--- NOTE | 2022-12-28 12:43 | ED_ITS ---
HPI - Nausea/Vomiting/Diarrhea General: Chief complaint: Nausea/Vomiting/Diarrhea Stated complaint: abd pain, N/V Time Seen by Provider: 12/28/22 11:22 Source: patient Mode of arrival: ambulatory History of Present Illness: 42-year-old female presents to the emergency room with complaint of sharp pain periumbilical its been going on for the last 5 days. She states anything she eats or drinks causes nausea. She vomited 4 times today no hematochezia melena hematemesis cough cramps no dysuria urgency or frequency. She has previously had a cholecystectomy. MD elicited complaint: nausea, vomiting and abdominal pain Onset (ago): day(s) Description of vomiting: bilious Associated nausea: Yes Associated abdominal pain: Yes Location of pain: Periumbilical Quality: cramping Exacerbating factors: none Relieving factors: none Associated symtoms: Reports nausea; Denies anxiety, bloating, change in vision, chest pain, cough, diaphoresis, decreased urine output, dizziness, dysuria, epistaxis, fatigue, fecal incontinence, fevers/chills, headache(s), anorexia, malaise, myalgias, numbness, palpitations, rash, short of breath, syncope, tenesmus, tinnitus or weakness Review of Systems Const: Denies: fever(s), chills, fatigue, malaise or diaphoresis Eyes: Denies: change in vision ENMT: Denies: tinnitus or epistaxis Card: Denies: chest pain, palpitations or syncope Resp: Denies: dyspnea, productive cough or non-productive cough GI: Reports: abdominal pain, nausea and vomiting; Denies: diarrhea, bloating or fecal incontinence : Denies: dysuria, urinary frequency or urinary urgency Skin/Breast: Denies: rash or pruritus Neuro: Denies: headache(s) or dizziness Psych: Denies: anxiety PFSH ED PFSH: Medical History Depression Gastroesophageal reflux Migraine headache On Topiramate for suppression. Surgical History History of endometrial ablation (07/18/19) Hysteroscopy with D&C and NovaSure ablation. Dx: Menorrhagia, anemia. Perf ormed by Dr. Mancuso at [facility]. History of vaginal hysterectomy (12/12/19) TVH with anterior vaginal repair with Raquel plication. Performed by Dr. Galdino Mancuso at [facility] in [place], [place] S/P tubal ligation (06/20/08) Laparoscopic bilateral Falope ring sterilization. Performed by Dr. Houser at [facility] and [place], [place]. Status post cholecystectomy (~2010) Performed at [facility] in [place], [place] Family History Father Diabetes Sister No problems noted. Family/Other No problems noted. Social History Smoking and tobacco status: current every day smoker cigarettes Packs smoked per day: 1 [ Other cigarette details: Started age 18. Has decreased periodically, but never quit.] Alcohol intake: current Alcohol intake frequency: holidays/special occasions only Substance/Drug Use: never Female Reproductive History: Spontaneous abortions: No Physical Exam Const: GENERAL APPEARANCE: cooperative and comfortable ORIENTATION/CONSCIOUSNESS: Yes awake, Yes oriented to person, Yes oriented to place and Yes oriented to time HENMT: COMMON NORMALS: normocephalic, atraumatic and hearing grossly normal bilaterally HEAD & SCALP: normocephalic and atraumatic Resp: COMMON NORMALS: normal respiratory effort, No retractions, No use of accessory muscles and clear to auscultation bilaterally AUSCULTATION: clear to auscultation bilaterally Cardio: COMMON NORMALS: regular rate, regular rhythm and No murmurs present (Cardio) RATE: regular rate RHYTHM: regular rhythm GI: COMMON NORMALS: No hepatosplenomegaly present AUSCULTATION: Yes normoactive bowel sounds PALPATION: Yes Tenderness to palpation present (GI) (Periumbilical/right lower quadrant discomfort no guarding or rebound), No Guarding due to palpation present (GI) and Yes No hepatosplenomegaly present Extremity: COMMON NORMALS: normal to inspection, capillary refill normal, no clubbing, cyanosis or edema, no calf tenderness and no pedal edema Neuro: SENSORIUM/ORIENTATION: Yes oriented to person, Yes oriented to place and Yes oriented to time Skin: COMMON NORMALS: no rashes or lesions noted GENERAL SKIN EXAM: no rashes or lesions noted Course Vital Signs: Vital signs: Vital Signs Temperature 97.7 F 12/28/22 11:38 Pulse Rate 82 12/28/22 13:13 Respiratory Rate 18 12/28/22 12:01 Blood Pressure 143/95 12/28/22 13:13 Pulse Oximetry 97 12/28/22 13:13 MDM - Nausea/Vomiting/Diarrhea Medical Decision Making Labs unremarkable no leukocytosis. CT does not show any acute findings she has an incidental finding of a fat-containing umbilical hernia but no other issue. She is feeling somewhat better discharged home clinical diet for next 24 to 48 hours and advance as tolerated Phenergan as needed for nausea Medical Records I reviewed the patient's medical records. Lab Data I reviewed the patient's lab results. 12/28/22 11:56 12/28/22 11:56 Radiology Impressions Abdomen/Pelvis CT 12/28/22 11:42 IMPRESSION: 1. No obstructing renal or ureteral calculi. No hydronephrosis. 2. Normal appendix in the RIGHT lower quadrant. No evidence of acute appendicitis. 3. No free fluid in the abdomen or pelvis. 4. Tiny incidental fat-containing umbilical hernia. 5. Prior cholecystectomy with a small amount of pneumobilia likely incidental. Laboratory Results WBC 8.1 10^3/uL (4.0-10.0) 12/28/22 11:56 RBC 4.64 10^6/uL (4.1-5.3) 12/28/22 11:56 Hgb 14.0 g/dL (11.5-15.3) 12/28/22 11:56 Hct 41.3 % (37.0-47.0) 12/28/22 11:56 MCV 89.0 fl (81-99) 12/28/22 11:56 MCH 30.2 pg (28.0-34.0) 12/28/22 11:56 MCHC 33.9 g/dL (30.0-36.0) 12/28/22 11:56 RDW 12.6 % (12.1-15.1) 12/28/22 11:56 Plt Count 213 10^3/cmm (130-400) 12/28/22 11:56 MPV 10.8 fL (7.4-10.4) H 12/28/22 11:56 Neut % (Auto) 57.9 % 12/28/22 11:56 Lymph % (Auto) 31.3 % 12/28/22 11:56 [place] % (Auto) 7.3 % 12/28/22 11:56 Eos % (Auto) 2.6 % 12/28/22 11:56 Baso % (Auto) 0.5 % 12/28/22 11:56 Neut # (Auto) 4.70 10^3/uL (1.8-7.7) 12/28/22 11:56 Lymph # (Auto) 2.5 10^3/uL (0.8-4.8) 12/28/22 11:56 [place] # (Auto) 0.6 10^3/uL (0.2-0.9) 12/28/22 11:56 Eos # (Auto) 0.2 10^3/uL (0.0-0.8) 12/28/22 11:56 Baso # (Auto) 0.0 10^3/uL (0.0-0.1) 12/28/22 11:56 Nucleated RBC % (auto) 0 % 12/28/22 11:56 Nucleated RBCs # 0.0 /100WBC 12/28/22 11:56 Sodium 135 mmol/L (136-145) L 12/28/22 11:56 Potassium 3.8 mmol/L (3.5-5.1) 12/28/22 11:56 Chloride 100 mmol/L (98-107) 12/28/22 11:56 Carbon Dioxide 25 mmol/L (22-29) 12/28/22 11:56 Anion Gap 13.8 (5-19) 12/28/22 11:56 BUN 9 mg/dL (6-20) 12/28/22 11:56 Creatinine 0.7 mg/dL (0.5-0.9) 12/28/22 11:56 GFR Calculation 92.2 mL/min (90-130) 12/28/22 11:56 Glucose 102 mg/dL (65-115) 12/28/22 11:56 Calculated Osmolality 279 mOsm/kg (285-295) L 12/28/22 11:56 Calcium 8.8 mg/dL (8.5-10.5) 12/28/22 11:56 Total Bilirubin 0.3 mg/dL (0.15-1.2) 12/28/22 11:56 AST 14 U/L (0-32) 12/28/22 11:56 ALT 23 U/L (0-33) 12/28/22 11:56 Alkaline Phosphatase 74 U/L (35-105) 12/28/22 11:56 Total Protein 7.0 g/dL (6.6-8.7) 12/28/22 11:56 Albumin 4.1 g/dL (3.5-5.2) 12/28/22 11:56 Globulin 2.9 g/dL (1.3-4.6) 12/28/22 11:56 Lipase 23 U/L (13-60) 12/28/22 11:56 HCG, Qual Negative (Negative) 12/28/22 11:56 Urine Color Dark yellow (Yellow) 12/28/22 11:35 Urine Appearance Clear (CLEAR) 12/28/22 11:35 Urine pH 7 (5-7) 12/28/22 11:35 Ur Specific Gary 1.005 (1.005-1.030) 12/28/22 11:35 Urine Protein Neg (Negative) 12/28/22 11:35 Urine Glucose (UA) Norm (Normal) 12/28/22 11:35 Urine Ketones Negative (Negative) 12/28/22 11:35 Urine Blood Neg (Negative) 12/28/22 11:35 Urine Nitrate Negative (Negative) 12/28/22 11:35 Urine Bilirubin Neg (Negative) 12/28/22 11:35 Urine Urobilinogen Norm mg/dL (Negative) 12/28/22 11:35 Ur Leukocyte Esterase Trace (Negative) H 12/28/22 11:35 Urine RBC None /hpf (0-2) 12/28/22 11:35 Urine WBC 0-4 /hpf (0-5) H 12/28/22 11:35 Ur Squamous Epith Cells 10-15 /hpf (0-5) H 12/28/22 11:35 Amorphous Sediment Not Reportable 12/28/22 11:35 Urine Bacteria 2+ /hpf (NONE) H 12/28/22 11:35 Urine Mucus 2+ /hpf 12/28/22 11:35 Discharge Plan Discharge Patient Disposition: Home Clinical Impression: Abdominal pain Condition: Stable Prescriptions: New promethazine 25 mg tablet 25 mg PO Q6H PRN (Reason: nausea and vomiting) Qty: 20 0RF Discontinued ondansetron 4 mg tablet,disintegrating 4 mg PO Q6H No Action omeprazole 40 mg capsule,delayed release(DR/EC) 40 mg PO QDAY fluticasone propionate [Flonase Allergy Relief] 50 mcg/actuation spray,suspension 1 spray intranasal DAILY Qty: 16 0RF Rx Instructions: administer into each nostril levocetirizine [Xyzal] 5 mg tablet 5 mg PO DAILY Qty: 30 0RF famotidine 40 mg tablet 40 mg PO DAILY rizatriptan 10 mg tablet 10 mg PO Q2H PRN Rx Instructions: do not exceed 3 doses per 24 hrs lisinopril 10 mg tablet 10 mg PO DAILY Discharge Orders: Discharge ED (Routine); Ordered 12/28/22 Ordered By: Shravan Sweeney Referrals: Aggie Stevens APN [Primary Care Provider] - Discharge Diet: Clear Liquid Discharge Activity: Increase activity as tolerated Patient Instructions: Abdominal Pain (ED), Opioid Safety, Pain Management Activity Restrictions/Additional Instructions: You are seen today for abdominal pain CT and laboratory test for the most part unremarkable. Recommend clear liquid diet for the next 2 to 3 days and then advance as tolerated use promethazine instead of ondansetron for nausea if sympt oms worsen or change return. Coding Level of Care Code ED Sound Engineer Audio Control for Ned Mccrary
[2022-12-28 13:13] VITALS: BP 143/95; PULSE 82; O2SAT 97
== END 2022-12-28 13:14 | disposition home or self-care (01) ==
PROVIDERS: Emergency Medicine; Emergency Provider Family Medicine; PCP Nurse Practitioner Family
DX: R10.9 Unspecified abdominal pain (principal)
CPT/HCPCS: 74176; 80053; 81001; 83690; 84703; 85025; 96374; 96375; 99285; J2270; J2405

== ENCOUNTER 2023-05-13 07:18 | Day surgery (SDC) | payer OTHER, SELFPAY ==
--- NOTE | 2023-05-13 05:57 | P.HP_ITS ---
Same Day Surgery H&P Indication for Procedure/HPI DATE OF PROCEDURE: May 13, 2023 CHIEF COMPLAINT/INDICATIONFOR SURGICAL PROCEDURE: persistent vomit PREOP DIAGNOSIS: chronic vomit PLANNED PROCEDURE: Operation Date: 05/13/23 08:20 Proposed Procedures p EGD 27589,R11.10(Not Applicable) - Gael Weems MD Medications/Allergies* Home Medications Medication Instructions Recorded Confirmed Type famotidine 40 mg tablet 40 mg PO DAILY 12/28/22 05/11/23 History rizatriptan 10 mg tablet 10 mg PO Q2H PRN Headache 12/28/22 05/11/23 History olmesartan 20 mg tablet 20 mg PO DAILY 05/11/23 05/11/23 History ondansetron HCl 4 mg tablet 4 mg PO Q4H PRN Nausea 05/11/23 05/11/23 History Allergies/Adverse Reactions Allergy/AdvReac Type Severity Reaction Status Date / Time No Known Allergies Allergy Verified 05/11/23 11:55 Pertinent History/Comorbid Conditions* Medical History (Updated 03/02/23 @ 09:40 by Gael Weems MD) Depression Gastroesophageal reflux Migraine headache On Topiramate for suppression. Surgical History (Updated 01/01/20 @ 19:18 by Galdino Mancuso MD) History of endometrial ablation (07/18/19) Hysteroscopy with D&C and NovaSure ablation. Dx: Menorrhagia, anemia. Performed by Dr. Mancuso at [facility]. History of vaginal hysterectomy (12/12/19) TVH with anterior vaginal repair with Raquel plication. Performed by Dr. Galdino Mancuso at [facility] in [place], [place] S/P tubal ligation (06/20/08) Laparoscopic bilateral Falope ring sterilization. Performed by Dr. Houser at [facility] and [place], [place]. Status post cholecystectomy (~2010) Performed at [facility] in [place], [place] Family History (Updated 07/12/19 @ 16:25 by Idania Iyer LPN) Diabetes Father Social History Smoking and tobacco/nicotine status: current every day tobacco/nicotine user cigarettes Packs smoked per day: 1 [ Other cigarette details: Started age 18. Has decreased periodically, but never quit.] Alcohol intake: current Alcohol intake frequency: holidays/special occasions only Substance/Drug Use: never Pertinent Exam Findings alert, oriented x 3 and clear to auscultation bilaterally Recommendations Surgery/Procedure today Coding Level of Care Code Acute Code for Chg Fwd Diagnoses
--- OUTSIDE RECORDS SUMMARY | 2023-05-13 07:21 | XMS_ITS | Patient Health Record ---
Author Name Unknown Organization [facility] Address [address] [place] [address] Care Team Providers Care Residence Manager Name Role Phone [facility] Primary Care Provider [facility] Unavailable Unavailable ALLERGIES No Known Allergies RESULTS Component Value Reference Range Notes Testosterone Total 53671 Reviewed date:05/11/2023 08:39:22 AM Interpretation: Performing Lab: Notes/Report: Diagnosis Description: Menopausal and female climacteric states Testoster Tot 13.95 7.00-48.00 NG/DL Performed on the Siemens Jeds [employer] and [employer] Link IM Analyzer Lipid Panel Reflex DLDL 8006 1, 91316 Reviewed date:05/11/2023 08:39:36 AM Interpretation: Performing Lab: Notes/Report: Diagnosis Description: Essential (primary) hypertension Trig 93 Classification Guidelines:Triglycerides Adults: >20yrs Desirable <150 Borderline High 150-199 High 200-499 Very high >=500 Children: Male 0-4 yr 22-99 5-9 yr 30-101 10-14 yr 32-125 15-19 yr 37-148 Children: Female 0-4 yr 34-112 5-9 yr 32-105 10-14 yr 37-131 15-19 yr 39-132 Chol 136 <=200 MG/DL HDL 29 39-96 MG/DL Reference Ranges:HDL Male: 5-9y 38-75 10-14y 37-74 15-19y 30-63 >=20y 40-59 Female: 5-9y 36-73 10-14y 37-70 15-19y 35-74 >=20y 40-59 CH/HDL 4.7 0.0-4.9 RATIO LDL 88 0-130 MG/DL LDL result is i naccurate , if Trig is >400 mg/dl. See DLDL result. Comprehensive Metabolic Pane l 63040 Reviewed date:05/11/2023 08:39:52 AM Interpretation: Performing Lab: Notes/Report: Diagnosis Description: Essential (primary) hypertension Glucose Serum 93 71-110 MG/DL Testing perfor med at [facility], [address] [place] [address] [place] [address]. CLIA ID#: [id number] BUN 10 7-21 MG/DL Creat .74 .51-1.17 MG/DL U-mwzvpv-y-benzoquinone imine (NAPQI) is a metabolite of acetaminophen, NAPQI concentrations of apparoximately 10 mg/L correlation to toxic levels of acetaminophen demonstrates a greater than or equil to 10% change in results. NAPQI concentrations greater than this may lead to falsely depressed results for patient samples. Use of this assay is not recommended for patients undergoing treatment with phenindione, due to the potential for falsely depressed results. GFR 103.1 Calculation per formed from GFR calculator provided by the [employer]. Glomerular Filtration rate(GRF) is the best overall index of kidney function. Normal GFR varies according to age,sex, body size, and declines with age. The [employer] recommends using the CKD-EPI Creatinine Equation(2009) to estimate GFR. BUN/Creat Ratio 13.5 12.0-20.0 % Total Protein 6.6 5.8-8.0 G/DL Albumin 4.3 3.2-4.8 G/DL Globulin 2.3 2.3-3.5 G/DL Alb/Glob 1.9 0.8-2.2 Calcium 8.9 8.7-10.4 MG/DL Sodium 139 136-145 MMOL/L Potassium 4.0 3.5-5.1 MMOL/L Chloride 109 98-107 MMOL/L CO2 24.2 20.0-31.0 MMOL/L Anion Gap 10 5-15 Alk Phos 80 46-116 Bili Total <.2 .3-1.2 MG/DL Use of this ass ay is not recommended for patients undergoing treatment with eltrombopag due to the potential for falsely elevated results. AST/SGOT 12 15-37 UNIT/L ALT/SGPT 21 12-78 UNIT/L Osmo Serum,Calculated 287 280-300 MOSM/KG CBC w\ Auto Diff 27231 Reviewed date:05/11/2023 08:41:59 AM Interpretation: Performing Lab: Notes/Report: Diagnosis Description: Essential (primary) hypertension WBC 8.2 4.5-11.0 X10'3 RBC 4.20 4.00-5.20 X10'6 Hgb 12.9 12.0-16.0 G/DL Hct 38.3 36.0-46.0 % MCV 91.2 80.0-100.0 FL MCH 30.7 27.0-31.0 PG MCHC 33.7 31.0-37.0 G/DL Platelet 234 150-400 X10'3 RDW-SD 42.3 35.0-49.0 FL RDW-CV 12.9 12.2-15.6 % MPV 11.8 9.2-12.0 FL Neutro Auto% 54.4 42.0-75.0 % Lymph Auto% 34.5 20.0-51.0 % Hamlin Auto% 7.5 1.7-9.3 % Eos Auto% 2.1 .0-6.0 % Baso Auto% 1.0 0.0-1.0 % Imm Gran% .5 .0-.4 % Neutro Abs 4.48 .80-7.70 Absolute Neutrophil Count 4480 Lymph Abs 2.84 .10-4.10 Hamlin Abs .62 .20-1.00 Eos Abs .17 .00-.40 Baso Abs .08 .00-.10 Imm Gran Abs .04 .00-.10 NRBC# .00 .00-.20 X10'3 NRBC% .00 .00-.20 /100 int act WBC's Thyroxine (T4) 09659 Reviewed date:05/11/2023 08:44:46 AM Interpretation: Performing Lab: Notes/Report: Diagnosis Description: Encounter for screening for other suspected endocrine disorder ThyroxinT4 8.0 4.8-13.9 Follicle Stimulating Hormone (FSH) 64034 Reviewed date:05/11/2023 08:45:00 AM Interpretation: Performing Lab: Notes/Report: Diagnosis Description: Menopausal and female climacteric states Follicle Stim H 6.5 Reference Range: Female normal menstruating Follicular Phase 2.5-10.2 Midcycle Phase 3.4-33.4 Luteal Phase 1.5-9.1 Female <0.3 Female postmenopausal 23-116.3 Males 13Yr 1.4-18.1 Performed on the Siemens Atellica Solution IM Progesterone (B) 85230 Reviewed date:05/11/2023 08:45:16 AM Interpretation: Performing Lab: Notes/Report: Diagnosis Description: Menopausal and female climacteric states Progesterone .44 Reference Ranges: Normal female follicular 0.15-1.40. Normal female luteal 3.34-25.56. Normal Mid- luteal 4.44-28.03. Post Menopausal <0.21-0.73. First Trimester 11.22-90.00. Second Trimester 25.55-89.40. Third Trimester 48.40-422.50. Normal Male 0.28-1.22. Performed on the Siemens Atellica Solution IM Thyroid Stimulating Hormone (TSH) 94704 Reviewed date:05/11/2023 08:45:34 AM Interpretation: Performing Lab: Notes/Report: Diagnosis Description: Encounter for screening for other suspected endocrine disorder TSH 3.964 .358-3.740 MlU/ML Estradiol Level 48126 Reviewed date:05/11/2023 08:39:05 AM Interpretation: Performing Lab: Notes/Report: Diagnosis Description: Menopausal and female climacteric states Estradiol 67 Males < 0-52 Follicular Phase 11-165 Midcycle 146-526 Luteal Phase 33-133 Postmenopausal Female < 0-37 Test performed with Siemens Estradiol reagent assay. Siemens has confirmed the drug fulvestrant (Faslodex) may cause falsely elevated estradiol results when performed with this assay method. Fulvestrant (Faslodex) is an estrogen receptor antagonist which is used in the treatment of stage IV recurrent breast cancer in post-menopausal women with estrogen receptor positive breast cancer. Fulvestrant is used when other anti-estrogen drugs have failed. Fulvestrant has a similar chemical structure to estradiol and may cross-react with antibodies used in immunoassays. REASON FOR REFERRAL Reason gerd vomiting Diagnosis 1 GERD without esophag itis (K21.9) Diagnosis 2 Constipation, unspec ified constipation type (K59.00) Diagnosis 3 Nausea and vomiting, unspecified vomiting type (R11.2) Referral Organization [facility] Referring Provider First Name Aggie Referring Provider Last Name Stevens Referring Provider Speciality Nurse Wayne prado Referred Provider Zeferino Smith Referred Provider Specialty General Surg gillian General Notes Wilma Du 12/2022 11:12:16 AM >Patient was seen on 03/02/2023. See referral note. Referral Priority Routine Referral Appointment Date 03/02/2023 MEDICATIONS Medication SIG (Take, Route, Frequency, Duration) Notes Start Date End Date Status Rizatriptan Benzoate 10 MG 1 tablet Oral ly Once a day prn migraine for 30 days Active Phentermine HCl 37.5 MG 1 tablet Orally Once a day for 30 days 05/10/2023 06/09/2023 Active Olmesartan Medoxomil 20 MG 1 tablet Oral ly Once a day for 90 days Active Pepcid 40 MG 1 tablet at bedtime Orally Once a day for 30 days Active Ondansetron HCl 4 MG 1 tablet Orally q 4 hours prn nausea for 30 days Active SOCIAL HISTORY Tobacco Use: Social History Observation Description Date Details (start date - stop date) Current Smoker NA - NA Sex Assigned At : Social History Observation Description Sex Assigned At Unknown Tobacco Use/Smoking Question Answer Notes Are you a current smoker How often do you smoke cigarettes? every day How many cigarettes a day do you smoke? 11-20 How soon after you wake up d o you smoke your first cigarette? 6-30 minutes Are you interested in quitting? Thinking about q uitting PHQ-9 Question Answer Notes Little interest or pleasure in doing things Not at all Feeling down, depressed, or hopeless Not at all Trouble falling or staying asleep, or sleeping t oo much More than half the days Feeling tired or having little energy Not at all Poor appetite or overeating Several days Feeling bad about yourself, or that you are a failure, or have let yourself or your family down Not at all Trouble concentrating on thi ngs, such as reading the newspaper or watching television Not at all Moving or speaking so slowly that other people could have noticed. Or the opposite ? being so fidgety or restless that you have been moving around a lot more than usual Not at all Thoughts that you would be b dane off , or of hurting yourself in some way Not at all Total Score 3 Interpretation Minimal Depression PROBLEMS Problem Type ICD Code Onset Dates Problem Status W/U Status Risk SNOMED Code Notes Problem Nicotine dependence, cigarettes, uncomplicated (F17.210) Active confirmed 54320353 Problem Menopausal and female climacteric states (N95.1) Active confirmed 860152940 Problem Constipation, unspecified constipation type (K59.00) Active confirmed 51799825 Problem GERD without esophagitis (K21.9) Active confirmed 160236876 Problem Obesity (BMI 30-39.9) (E66.9) Active confirmed 572443369 Problem Obesity, Class III, BMI 40-49.9 (morbid obesity) (E66.01) Active confirmed 832146826 Problem Body mass index [BMI] 39.0-39.9, adult (Z68.39) Active confirmed 948327986 Problem Primary hypertension (I10) Active confirmed 07134288 Problem Body mass index [BMI] 40.0-44.9, adult (Z68.41) Active confirmed 446877827 VITAL SIGNS Heart Rate 90 /min 05/10/2023 Temperature 97.7 degrees Fahrenheit 05/10/2023 Respiratory Rate 20 /min 05/10/2023 Blood pressure diastolic 87 mm Hg 05/10/2023 Oximetry 97 % 05/10/2023 Height-cm 162.56 cm 05/10/2023 Weight-kg 104.78 kg 05/10/2023 Height 64 in 05/10/2023 Blood pressure systolic 122 mm Hg 05/10/2023 Weight 231 lbs 05/10/2023 BMI 39.65 kg/m2 05/10/2023 Encounters Encounter Location Date Provider Diagnosis [facility] [address] [address] 12/22/2022 [facility] [address] [address] 12/25/2022 [facility] [address] [address] 01/21/2023 [facility] Other specified coug h R05.8 ; Primary hypertension I10 ; Obesity, Class III, BMI 40-49.9 (morbid obesity) E66.01 ; Nicotine dependence, cigarettes, uncomplicated F17.210 ; Body mass index [BMI] 40.0-44.9, adult Z68.41 and Adverse effect of axaityzhysb-hxdwyseyoi-b nzyme inhibitors, initial encounter T46.4X5A [facility] [address] [address] 02/22/2023 [facility] GERD without esophag itis K21.9 ; Constipation, unspecified constipation type K59.00 ; Nausea and vomiting, unspecified vomiting type R11.2 ; Obesity, Class III, BMI 40-49.9 (morbid obesity) E66.01 and Body mass index [BMI] 40.0-44.9, adult Z68.41 [facility] [address] [address] 03/25/2023 [facility] Obesity (BMI 30-39.9 ) E66.9 ; Primary hypertension I10 ; Nicotine dependence, cigarettes, uncomplicated F17.210 and Body mass index [BMI] 39.0-39.9, adult Z68.39 [facility] [address] [address] 04/23/[address] [address] 05/10/2023 [facility] GERD without esophag itis K21.9 ; Primary hypertension I10 ; Obesity (BMI 30-39.9) E66.9 ; Episodic migraine G43.909 ; Nausea and vomiting, unspecified vomiting type R11.2 ; Menopausal and female climacteric states N95.1 ; Thyroid disorder screen Z13.29 ; Body mass index [BMI] 39.0-39.9, adult Z68.39 ; Nicotine dependence, cigarettes, uncomplicated F17.210 and Encounter for screening mammogram for breast cancer Z12.[address] [address] 12/21/2022 [facility] Episodic migraine G43.909 ; Primary hypertension I10 ; GERD without esophagitis K21.9 ; Nausea R11.0 and Nicotine dependence, cigarettes, uncomplicated F17.210 ASSESSMENTS Encounter Date Diagnosis Assessment Notes Treatment Notes Treatment Clinical Notes 01/21/2023 Primary hypertension (ICD-10 - I10) ruben thorntonr 01/21/2023 Other specified cough (ICD-10 - R05.8) stop lisinopril 02/22/2023 Constipation, unspecified constipation type (ICD-10 - K59.00) refer to dr smith 02/22/2023 GERD without esophagitis (ICD-10 - K21.9) continue pepcid 03/25/2023 Obesity (BMI 30-39.9) (ICD-10 - E66.9) Discussed with the diet, increase water intake, increase activity, decrease calorie intake, take medication as directed; phentermine e script to patient pharmacy. Patient to lose minimum of 4 pounds and return to clinic 1 month and prn. Pts questions asked and answered. Discharged to home. 03/25/2023 Primary hypertension (ICD-10 - I10) conitnue meds monitor bp 05/10/2023 GERD without esophagitis (ICD-10 - K21.9) pepcid scope as planned 05/10/2023 Primary hypertension (ICD-10 - I10) olmesartan cbc cmp lipids 12/21/2022 Primary hypertension (ICD-10 - I10) lisinopril 12/21/2022 Episodic migraine (ICD-10 - G43.909) maxalt 12/21/2022 GERD without esophagitis (ICD-10 - K21.9) pepcid 05/10/2023 Obesity (BMI 30-39.9) (ICD-10 - E66.9) Discussed with the diet, increase water intake, increase activity, decrease calorie intake, take medication as directed; phentermine e script to patient pharmacy. Patient to lose minimum of 4 pounds and return to clinic 1 month and prn. Pts questions asked and answered. Discharged to home. 01/21/2023 Obesity, Class III, BMI 40-49.9 (morbid obesity) (ICD-10 - E66.01) tw Discussed with the diet, increase water intake, increase activity, decrease calorie intake, take medication as directed; phentermine e script to patient pharmacy. Patient to lose minimum of 4 pounds and return to clinic 1 month and prn. Pts questions asked and answered. Discharged to home. 02/22/2023 Nausea and vomiting, unspecified vomiting type (ICD-10 - R11.2) 03/25/2023 Nicotine dependence, cigarettes, uncomplicated (ICD-10 - F17.210) 03/25/2023 Body mass index [BMI] 39.0-39.9, adult (ICD-10 - Z68.39) 02/22/2023 Obesity, Class III, BMI 40-49.9 (morbid obesity) (ICD-10 - E66.01) Discussed with the diet, increase water intake, increase activity, decrease calorie intake, take medication as directed; phentermine e script to patient pharmacy. Patient to lose minimum of 4 pounds and return to clinic 1 month and prn. Pts questions asked and answered. Discharged to home. 01/21/2023 Nicotine dependence, cigarettes, uncomplicated (ICD-10 - F17.210) 05/10/2023 Episodic migraine (ICD-10 - G43.909) rizatriptan 12/21/2022 Nausea (ICD-10 - R11.0) zofran 12/21/2022 Nicotine dependence, cigarettes, uncomplicated (ICD-10 - F17.210) 05/10/2023 Nausea and vomiting, unspecified vomiting type (ICD-10 - R11.2) zofran has 01/21/2023 Body mass index [BMI] 40.0-44.9, adult (ICD-10 - Z68.41) 02/22/2023 Body mass index [BMI] 40.0-44.9, adult (ICD-10 - Z68.41) 01/21/2023 Adverse effect of angiotensin-converti ng-enzyme inhibitors, initial encounter (ICD-10 - T46.4X5A) 05/10/2023 Menopausal and female climacteric states (ICD-10 - N95.1) fsh estradiol progesterone testosterone 05/10/2023 Thyroid disorder screen (ICD-10 - Z13.29) tsh t4 05/10/2023 Body mass index [BMI] 39.0-39.9, adult (ICD-10 - Z68.39) 05/10/2023 Nicotine dependence, cigarettes, uncomplicated (ICD-10 - F17.210) 05/10/2023 Encounter for screening mammogram for breast cancer (ICD-10 - Z12.31) 05/10/2023 Other Questions asked and answered; discharged to home. Venipuncture: Performed by: SPounders RN Attempts: x1 Location: [facility] Needle gauge: 21G Patient tolerated well. 12/21/2022 Other Questions asked and answered; discharged to home. 01/21/2023 Other Questions asked and answered; discharged to home. 02/22/2023 Other Questions asked and answered; discharged to home. 03/25/2023 Other Questions asked and answered; discharged to home. PLAN OF TREATMENT Pending Test Test Name Order Date Mammogram Screen Jay Jose Roberto [id number] Next Appt Details Provider Name:Aggie Stevens, 06/10/2023 10:00:00 AM, [address], [place], [address], Insurance Providers Payer Name Payer Address Payer Phone Subscriber Number Group Number Insured Name Patient Relationship to Insured Coverage Start Date Coverage End Date Balance Financial [address] [address] [place] [address] [id number] [place] i Self - patient is the insured MEDICAL (GENERAL) HISTORY Medical History History ICD Code migraines Surgical History Surgery Date(Month/Year) cholecystectomy tubal ligation dilation and curettage with ablasion partial hysterectomy Hospitalization History Reason Date(Month/Year) surgical history childbirth x3
[2023-05-13 07:33] VITALS: BMI 38.6
[2023-05-13 07:34] VITALS: BP 188/109; PULSE 96; RESP 16; TEMP 36.2; O2SAT 96
--- NOTE | 2023-05-13 07:47 | ANES.PREANE2 ---
Pre-Anesthetic Assessment Height/Weight: Height 1.63 m Weight 102.058 kg Temp Pulse Resp BP Pulse Ox O2 Del Method 97.1 F L 96 16 188/109 96 Room Air 05/13/23 07:34 05/13/23 07:34 05/13/23 07:34 05/13/23 07:34 05/13/23 07:34 05/13/23 07:34 Preop Diagnosis: chronic vomit Operation Date: 05/13/23 08:20 Proposed Procedures p EGD 99661,R11.10(Not Applicable) - Gael Weems MD Familial anesthetic complications: None Was Beta Jared taken within 24 hours: N/A Was Clonidine taken within 24 hours: N/A Last intake: Intake Last Liquid Date 05/12/23 Last Liquid Time 23:30 Last Solid Date 05/12/23 Last Solid Time 19:30 Social Alcohol and Tobacco Exam alert, oriented x 3, clear to auscultation bilaterally and regular rate & rhythm Airway Mallampati: Class II Dentition: false GI Gastroesophageal Reflux Disease Anesthetic Plan ASA status: 2 Anesthesia: MAC Risk of > 500 ml blood loss (7ml/kg in children): No Medications/Allergies Home Medications Medication Instructions Recorded Confirmed Last Taken Type famotidine 40 mg tablet 40 mg PO DAILY 12/28/22 05/11/23 05/12/23 History rizatriptan 10 mg tablet 10 mg PO Q2H PRN Headache 12/28/22 05/11/23 Unknown History olmesartan 20 mg tablet 20 mg PO DAILY 05/11/23 05/11/23 05/12/23 History ondansetron HCl 4 mg tablet 4 mg PO Q4H PRN Nausea 05/11/23 05/11/23 Unknown History Allergies Allergy/AdvReac Type Severity Reaction Status Date / Time No Known Allergies Allergy Verified 05/11/23 11:55 [facility] Anesthesia Medical History Depression Gastroesophageal reflux Migraine headache On Topiramate for suppression. Surgical History History of endometrial ablation (07/18/19) Hysteroscopy with D&C and NovaSure ablation. Dx: Menorrhagia, anemia. Performed by Dr. Mancuso at [facility]. History of vaginal hysterectomy (12/12/19) TVH with anterior vaginal repair with Raquel plication. Performed by Dr. Galdino Mancuso at [facility] in [place], [place] S/P tubal ligation (06/20/08) Laparoscopic bilateral Falope ring sterilization. Performed by Dr. Houser at [facility] and [place], [place]. Status post cholecystectomy (~2010) Performed at [facility] in [place], [place] Family History Father Diabetes Sister No problems noted. Family/Other No problems noted. Social History Smoking and tobacco/nicotine status: current every day tobacco/nicotine user cigarettes Packs smoked per day: 1 [ Other cigarette details: Started age 18. Has decreased periodically, but never quit.] Alcohol intake: current Alcohol intake frequency: holidays/special occasions only Substance/Drug Use: never Female Reproductive History Spontaneous abortions: No Data Anesthesia Cardiac Studies: No Data to Display
[2023-05-13] MEDS: sodium chloride 0.9% 1,000 ML 30 ML IV (07:49)
[2023-05-13 09:00] VITALS: BP 154/115; PULSE 97; RESP 20; TEMP 36.1; O2SAT 96
[2023-05-13 09:02] VITALS: BP 133/90
[2023-05-13 09:10] VITALS: BP 149/95; PULSE 91; RESP 18; O2SAT 97
[2023-05-13 09:22] VITALS: BP 154/103; PULSE 86; RESP 18; O2SAT 97
--- NOTE | 2023-05-13 09:30 | ANE.PACU2 ---
Inpatient post-anesthesia follow up: Airway intact: Yes Vital signs: Temperature 97.0 F Pulse Rate 86 Respiratory Rate 18 Blood Pressure 154/103 Pulse Oximetry 97 Oxygen Delivery Me thod Room Air Oxygen Flow Rate Fraction of Inspir ed Oxygen Hydration adequate: Yes Nausea and vomiting: No Pain level: 1 Mental status: Baseline
== END 2023-05-13 09:34 | disposition home or self-care (01) ==
PROVIDERS: PCP Nurse Practitioner Family; Visit Provider Surgery
PROC: 0DJ08ZZ Inspection of Upper Intestinal Tract, Via Natural or Artificial Opening Endoscopic (ICD-10-PCS; CPT 43235; principal; 2023-05-13 08:20)
DX: R11.0 Nausea (principal); K44.9 Diaphragmatic hernia without obstruction or gangrene; K29.50 Unspecified chronic gastritis without bleeding; K29.80 Duodenitis without bleeding; F17.210 Nicotine dependence, cigarettes, uncomplicated
CPT/HCPCS: 43239; 88305; J2704; J7030

== ENCOUNTER 2024-11-16 12:58 | Outpatient (CLI) | payer OTHER, SELFPAY ==
--- NOTE | 2024-11-16 13:00 | MM_ITS ---
WS: [id number] SCREENING DIGITAL TOMOSYNTHESIS MAMMOGRAM WITH CAD HISTORY: SCREENING COMPARISON: None available. Bilateral CC and MLO with tomosynthesis views submitted. Synthetic mammography reviewed. Computer aided detection analyzed. Breast composition: The breasts are heterogeneously dense, which may obscure small masses. No suspicious masses, microcalcifications or architectural distortion. MM/MM scr BI tomosynthesis [id number] IMPRESSION: BI-RADS: 1 - Negative FOLLOW UP: 1 Year Follow-up
== END 2024-11-16 12:59 | disposition home or self-care (01) ==
PROVIDERS: PCP Nurse Practitioner Family; Visit Provider Nurse Practitioner Family
DX: Z12.31 Encounter for screening mammogram for malignant neoplasm of breast (principal); R92.333 Mammographic heterogeneous density, bilateral breasts
CPT/HCPCS: 77063; 77067

== ENCOUNTER → 2025-04-17 12:37 | Outpatient (BNVA) | payer OTHER, SELFPAY | PROVIDERS: PCP Nurse Practitioner Family | DX: M79.671 Pain in right foot (principal) | CPT/HCPCS: 73630 ==